=== PATIENT | female | born 1940 ===

== ENCOUNTER 2016-06-08 09:36 | Emergency (ER) | payer MEDICARE, OTHER ==
--- NOTE | ~2016-06-08 | ER ---
PATIENT'S NAME: RENAE LOTT [facility] AGE: 76 Y [address] ROOM: [place] [address] LOCATION: [facility] ADMIT DATE: 06/08/2016 ER/Outpatient Report DISCHARGE DATE: 06/08/2016 FAMILY PHYSICIAN: Addis Plata ATTENDING PHYSICIAN: Mason Aldridge admission date and time documented on the medical record. I saw the patient at 0950 hours. CHIEF COMPLAINT: Syncope, back pain, and incontinent of urine and stool. HISTORY OF PRESENT ILLNESS: This patient is a 76-year-old female, who lives at [facility]. She apparently was found unresponsive by staff. Paramedics were dispatched. They brought the patient into the emergency room by ambulance for evaluation. On their arrival, she was awake and responsive as she was here in the emergency department. She was incontinent of stool and urine. She has low back pain. Denies any head pain, neck pain, chest pain, or abdominal pain. Apparently no recent colds, coughs, flus, fever, chills, or sweats. Has fallen a couple times this week. No shortness of breath. No nausea or vomiting. No diarrhea or urinary frequency, urgency, or dysuria. No joint or muscle swelling, redness, or pain. No skin eruptions or rash. Does have hypothyroidism, but no other endocrine problems. Does have dementia. No history of TIA or CVA. No psych issues. HOME MEDICATIONS: See attached medication list. ALLERGIES: PENICILLIN. SOCIAL HISTORY: Nonsmoker and nondrinker. SIGNIFICANT PAST MEDICAL HISTORY: 1. Chronic kidney disease. 2. Osteoporosis. 3. Vitamin D deficiency. 4. Dementia. 5. Hypothyroidism. 6. Spondylosis. REVIEW OF SYSTEMS: All systems reviewed by me are negative with the exception of those discussed PATIENT'S NAME: AWAIS LOTTITE Gordo [facility] AGE: 76 Y [address] ROOM: [place] [address] LOCATION: [facility] ADMIT DATE: 06/08/2016 ER/Outpatient Report DISCHARGE DATE: 06/08/2016 FAMILY PHYSICIAN: Addis Plata ATTENDING PHYSICIAN: Mason Aldridge in the history of the present illness. PHYSICAL EXAMINATION: VITAL SIGNS: Temperature 97.8 tympanic, pulse 69, respirations 16, blood pressure 118/56, O2 saturation on room air is 93%. HEAD: Normocephalic. No abrasion, contusion, laceration, swelling of the scalp or face. EYES: Extraocular muscles intact. PERRL. Ears, clear TMs bilaterally. NOSE: Clear. THROAT: Clear. Mucous membranes moist. Teeth, jaw intact. NECK: No nuchal rigidity. No findings of adenopathy. No tenderness. SPINE: Negative. She has some lower back pain in paraspinal muscle area. HEART: Regular. Pulses are palpable. LUNGS: Clear. No rales, rhonchi, or wheezes. ABDOMEN: Soft, nondistended, and nontender. Good bowel tones. No organomegaly or abnormal mass palpable. EXTREMITIES: Without peripheral edema, cyanosis, or deformity. NEURO: Cranial nerves appear to be intact. No lateralizing signs. The patient is awake and cooperative. Motor and sensory are intact. The patient is disoriented and she does have a history of dementia. MENTAL STATUS: At this time are normal. SKIN: Clear. No skin eruptions or rash. IMAGING DATA: Chest x-ray showed no acute infiltrate or changes. EKG showed sinus rhythm. No acute ST elevation, ischemic change, or arrhythmia. LABORATORY DATA: Urine showed 50 to 100 whites, 20 to 50 reds, negative epithelial cells, moderate bacteria, 3+ mucus, 1+ amorphous material, positive nitrites on dipstick. Culture pending. Blood cultures x2 drawn and results are pending. CRP was 0.77, free T4 was 1.1, TSH was 5.44. CMS was normal except for low CO2 content of 17 and elevated glucose 172. Magnesium was low at 1.3. CPK was 50s. Point of care cardiac enzymes were normal. Procalcitonin was less than 0.05. Lactate was 5.1. White count 7400, 70 segs, 23 lymphs, 6 monos, 1 eos, 1 baso. Hemoglobin is 13.9, hematocrit 42.3, platelet count 319,000. Sedimentation rate is elevated 35. PTT was 25, pro-time is 10 with an INR 0.95. IMPRESSION: 1. Urinary tract infection. 2. Low back pain. 3. Syncope, etiology uncertain. 4. Hypothyroidism. 5. Chronic kidney disease. PATIENT'S NAME: JULIANA LOTTJAMIR Caro [facility] AGE: 76 Y [address] ROOM: [place] [address] LOCATION: [facility] ADMIT DATE: 06/08/2016 ER/Outpatient Report DISCHARGE DATE: 06/08/2016 FAMILY PHYSICIAN: Addis Plata ATTENDING PHYSICIAN: Mason Aldridge PLAN: The patient was given Cipro 400 mg IV in the emergency room, morphine IV in the emergency room for pain. Discharged back to [facility]. Continue present home medications and care. Cipro 500 b.i.d. for a week. Follow up with personal physician in 7 to 10 days. Recheck urine and reexamination, sooner if needed. Discussion ensued with the family concerning my findings and recommendations and they understand. MD ZANDER JIMENEZ/franklin /[id number] d: 06/08/16 1442 t: 06/09/16 0617, OUTPATIENT REPORT
[2016-06-08 10:01] LABS: BASOPHIL % 0.5 %; EOSINOPHIL # 0.1 K/uL (0.0-0.5); EOSINOPHIL % 0.7 %; HEMATOCRIT 42.3 % (33.0-46.0); HEMOGLOBIN 13.9 g/dL (10.0-15.0); IMMATURE GRANULOCYTE % 0.3 %; LYMPHOCYTE # 1.7 K/uL (0.8-4.0); LYMPHOCYTE % 22.6 %; MCHC 32.9 gm/dL (32.0-36.5); MCV 100.5 fl (83.0-98.0); MONOCYTE # 0.4 K/uL (0.0-1.0); MONOCYTE % 5.9 %; MPV 9.4 fl (9.4-12.4); NEUTROPHIL # (ANC) 5.2 K/uL (1.8-7.8); NRBC % 0 /100WBC (0-0.00); PLATELET COUNT 319 K/uL (150-450); RBC 4.21 M/uL (3.50-5.50); WBC 7.4 K/uL (4.0-11.0)
[2016-06-08 10:13] LABS: INR - (THERAPEUTIC) 0.95 (0.92-1.07); PTT 25 SECONDS (25-32)
[2016-06-08 10:32] LABS: ALBUMIN 3.3 gm/dL (3.5-5.0); ALT 27 IU/L (12-78); AST 22 IU/L (10-40); BLOOD UREA NITROGEN 10 mg/dL (6-24); CHLORIDE 108 mMol/L (96-110); CREATININE 1.1 mg/dL (0.5-1.1); ESTIMATED GFR (MDRD EQUATION) 48; MAGNESIUM 1.3 mg/dL (1.8-2.6); POTASSIUM 3.8 mMol/L (3.7-5.1); SODIUM 140 mMol/L (135-145); TOTAL PROTEIN 6.6 g/dL (6.0-8.4)
[2016-06-08 10:34] LABS: BLOOD URINE 25 /UL (NEGATIVE); COLOR URINE YELLOW (YELLOW); GLUCOSE URINE NEGATIVE (NEGATIVE); KETONE URINE 5 mg/dL (NEGATIVE); LEUKOCYTES URINE 100 /UL (NEGATIVE); NITRITE URINE POSITIVE (NEGATIVE); PROTEIN URINE 100 mg/dL (NEGATIVE); SPEC GRAVITY URINE 1.025 (1.003-1.035); TURBIDITY URINE 2+ (CLEAR); UROBILINOGEN URINE 1 mg/dL (NORMAL)
[2016-06-08 10:34] LABS: ALK PHOS 69 IU/L (33-138); CPK 50 IU/L (21-215)
[2016-06-08 10:37] LABS: ANION GAP 18.8 (10.0-19.0); CO2 17 mMol/L (22-32)
[2016-06-08 10:41] LABS: EPITHELIAL URINE NEGATIVE #/HPF (NEGATIVE); RBC URINE 20-50 #/HPF (NEGATIVE); WBC URINE 50-100 #/HPF (NEGATIVE)
[2016-06-08 10:42] LABS: AMORPHOUS URINE 1+ (NEGATIVE); BACTERIA URINE MODERATE (NEGATIVE); MUCUS URINE 3+ (NEGATIVE)
[2016-06-08 10:57] LABS: CALCIUM 8.9 mg/dL (8.5-10.5)
== END 2016-06-08 13:05 | disposition disaster alternative care site (69) ==
LOC: GMED 09:36
PROVIDERS: Emergency Medicine
PROC: 0T9B70Z Drainage of Bladder with Drainage Device, Via Natural or Artificial Opening (ICD-10-PCS; principal; 2016-06-08)
DX: N39.0 Urinary tract infection, site not specified (principal); N18.9 Chronic kidney disease, unspecified; R55 Syncope and collapse; E03.9 Hypothyroidism, unspecified; M54.5 Low back pain; F03.90 Unspecified dementia, unspecified severity, without behavioral disturbance, psychotic disturbance, mood disturbance, and anxiety; Z88.0 Allergy status to penicillin; Z79.899 Other long term (current) drug therapy
CPT/HCPCS: J0744

== ENCOUNTER → 2016-06-08 | Outpatient (CLI) | payer MEDICARE, OTHER | END | disposition disaster alternative care site (69) | LOC: GAMB 09:14 | DX: R55 Syncope and collapse (principal); R40.20 Unspecified coma; M54.5 Low back pain; Z79.891 Long term (current) use of opiate analgesic; Z79.899 Other long term (current) drug therapy; Z88.0 Allergy status to penicillin | CPT/HCPCS: A0425; A0427; J2270; J3010; J7030 ==